=== PATIENT | male | born 1940 | race Caucasian/White ===

== ENCOUNTER 2017-10-10 08:16 | Day surgery (SDC) | payer MEDICARE, OTHER ==
[~2017-10-10] VITALS: Ht 185.4 cm; Wt 82.1 kg
[~2017-10-10 08:16] MED LIST: ALBU90OI6; ASPI81CH PO; BUDE10.22 IH; BUPR150T2 PO; BUPR75 PO; CRUTCH2 USE; HYDACE5325 PO; LEVSOD50 PO; LEVSOD88 PO; RXHYD5325 PO; SERT25 PO; TIOT18 IH; Zoloft100 MG PO
== END 2017-10-10 15:00 | disposition home or self-care (01) ==
LOC: ORSCMMR 08:16 → ORD 10:00 → ORSCMMR 10:00 → SURS 10-12 14:40 → ORSCMMR 10-12 15:00
PROVIDERS: Surgery
PROC: 0YU60JZ Supplement Left Inguinal Region with Synthetic Substitute, Open Approach (ICD-10-PCS; principal; 2017-10-10 10:00)
DX: K40.90 Unilateral inguinal hernia, without obstruction or gangrene, not specified as recurrent (principal); J44.9 Chronic obstructive pulmonary disease, unspecified; E03.9 Hypothyroidism, unspecified; Z87.891 Personal history of nicotine dependence
CPT/HCPCS: C1781; J0690; J2250; J3010; J7120

== ENCOUNTER 2020-04-08 07:15 | Day surgery (SDC) | payer MEDICARE, OTHER ==
[~2020-04-08] VITALS: Ht 182.9 cm; Wt 84.7 kg
[~2020-04-08 07:15] MED LIST changes: +Prozac20 MG PO
--- NOTE | 2020-04-08 08:35 | NUR ---
[facility] warming gown applied. Surgical site prepped with 2% Chlorhexidine cloth wipe. History, Chart, Medications and Allergies reviewed before start of procedure.Lungs clear T/O to Auscultation. Patient confirms NPO status and agrees with scheduled surgery. Pre-Op teaching done. Pt verbalizes understanding. Patient States Post-Procedure ride home has been arranged. Patient States Post-Procedure ride home has been arranged. Patient reports completing Chlorhexadine shower X2 prior to admission to hospital.
--- NOTE | 2020-04-08 11:24 | NUR ---
Discharge instructions reviewed with patient. Patient verbalizes understanding. Copy given to patient to take home. Patient States Post-Procedure ride home has been arranged. Discharged via wheelchair to private car for ride home.
--- NOTE | 2020-04-09 09:00 | NUR ---
04/09/20 0900 Paty Reyes VERIFICATIONS: EDIT CHART.
== END 2020-04-08 23:04 | disposition home or self-care (01) ==
LOC: ORSCMMR 07:15 → ORD 08:45 → ORSCMMR 23:04
PROVIDERS: Surgery
PROC: 0YU50JZ Supplement Right Inguinal Region with Synthetic Substitute, Open Approach (ICD-10-PCS; principal; 2020-04-08 08:45)
DX: K40.90 Unilateral inguinal hernia, without obstruction or gangrene, not specified as recurrent (principal); J44.9 Chronic obstructive pulmonary disease, unspecified; Z87.891 Personal history of nicotine dependence; Z79.899 Other long term (current) drug therapy
CPT/HCPCS: C1781; J0690; J1100; J2250; J2405; J2704; J3010; J7120

== ENCOUNTER → 2022-10-31 | Outpatient (CLI) | payer MEDICARE, OTHER | LOC: PLD 08:24 → LAB SHORT 08:24 | DX: C44.219 Basal cell carcinoma of skin of left ear and external auricular canal (principal) | CPT/HCPCS: 88305 ==

== ENCOUNTER → 2023-12-26 | Outpatient (CLI) | payer MEDICARE, OTHER | LOC: LAB SHORT 10:15 → LAB 10:15 | DX: N39.0 Urinary tract infection, site not specified (principal) | CPT/HCPCS: 87086 ==